=== PATIENT | female | born 1960 | race Caucasian/White ===

== ENCOUNTER 2018-06-21 11:56 | Emergency (ER) | payer OTHER ==
[~2018-06-21] VITALS: Ht 149.9 cm; Wt 59.9 kg
--- NOTE | ~2018-06-21 | EKG ---
[place] [address] [facility] [place] [address] ELECTROCARDIOGRAM REPORT Name: CATHERINE GUTHRIE [facility]at[facility] [id number] Admission: 06/21/18 Attend Phys: Discharge: Date of : 62 Report #: [id number] THIS REPORT FOR: //name// [facility] ED Test Date: 2018-06-21 Test Time: 12:22:38 Pat Name: CATHERINE GUTHRIE Department: Room: Gender: F Program Eligibility Specialist: rashawn : 1960 Requested By: Se Hines Order Number: [id number] MD: Geovanny Cain Measurements Intervals [place] Rate: 88 P: 57 [place]: 143 QRS: 37 QRSD: 85 T: 30 QT: 366 QTc: 443 Interpretive Statements Sinus rhythm Consider left atrial enlargement Borderline low voltage, extremity leads No previous ECG available for comparison Electronically Signed On 06-21-2018 15:46:46 SENIOR APPLICATION SECURITY CONSULTANT by Goevanny Cain [email or web address] <ELECTRONICALLY SIGNED> By: Geovanny Cain MD 06/21/18 1546 1222 1222 MD PAULA Holguin
[2018-06-21] MEDS ORDERED: FLUOXETINE HCL40 MG PO (12:13)
[2018-06-21] MEDS ORDERED: WELLBUTRIN XL300 MG PO (12:13)
[2018-06-21] MEDS ORDERED: QUETIAPINE FUM100 MG PO (12:14)
[2018-06-21] MEDS ORDERED: CLONAZEPAM 0.50.5 M1 PO (12:14)
[2018-06-21 12:57] VITALS: BP 132/68
[2018-06-21] MEDS ORDERED: FLEXERIL PO (13:24)
[2018-06-21] MEDS ORDERED: NORCO 5-325 TA1 EACH PO (13:24)
== END 2018-06-21 13:31 | disposition home or self-care (01) ==
LOC: ER 11:56
DX: S20.211A Contusion of right front wall of thorax, initial encounter (principal); M54.2 Cervicalgia; Z88.5 Allergy status to narcotic agent; V89.2XXA Person injured in unspecified motor-vehicle accident, traffic, initial encounter; Y93.89 Activity, other specified; Y92.89 Other specified places as the place of occurrence of the external cause; Y99.8 Other external cause status